=== PATIENT | male | born 1955 | race Caucasian/White ===

== ENCOUNTER 2020-09-04 16:04 | Outpatient (REF) | payer MEDICARE, BC, SELFPAY ==
[2020-09-04 15:39] LABS: HCT 42.6 % (40.0-50.0); HGB 13.6 g/dL (13.5-17.5)
[2020-09-04 16:09] LABS: ALT 32 U/L (16-63); AST 22 U/L (15-37); Albumin 4.1 g/dL (3.4-5.0); Alkaline Phosphatase 73 U/L (46-116); Anion Gap 7.4 mmol/L (3-11); BUN 11 mg/dL (7-18); Bilirubin, Total 0.5 mg/dL (0.2-1.0); CO2 29.6 mmol/L (21.0-32.0); CREATININE 0.8 mg/dL (0.70-1.30); Calcium 9.1 mg/dL (8.5-10.1); Calculated LDL 75 mg/dL (<100); Chloride 105 mmol/L (98-107); Cholesterol 165 mg/dL (<200); Glucose 93 mg/dL (74-106); HDL Cholesterol 68 mg/dL (40-60); Potassium 5.5 mmol/L (3.5-5.1); Sodium 142 mmol/L (136-145); Total Protein 7.1 g/dL (6.4-8.2); Triglyceride 110 mg/dL (<150)
[2020-09-04 22:35] LABS: PSA, Screening 3.1 ng/mL (0.0-4.5)
== END 2020-09-04 16:05 | disposition home or self-care (01) ==
LOC: NCHCN 16:04
PROVIDERS: Visit Provider Family Medicine
DX: Z00.00 Encounter for general adult medical examination without abnormal findings (principal); Z13.0 Encounter for screening for diseases of the blood and blood-forming organs and certain disorders involving the immune mechanism; Z13.220 Encounter for screening for lipoid disorders; Z12.5 Encounter for screening for malignant neoplasm of prostate
CPT/HCPCS: 80053; 80061; 84153; 85014; 85018

== ENCOUNTER 2020-11-03 01:13 | Outpatient (CLI) | payer MEDICARE, BC, SELFPAY ==
--- NOTE | 2020-11-03 13:27 | DI.RAD_ITS ---
Exam(s) XR WRIST RT COMPLETE EXAM: XR WRIST RT COMPLETE CLINICAL HISTORY: RT WRIST JOINT PAIN, M25.531. TECHNIQUE: 2D digital imaging was performed. COMPARISON: No exams were available for comparison FINDINGS: BONES: No acute fracture is present. No bony destructive lesion is seen. JOINTS: The carpal bones are normally aligned. SOFT TISSUE: Normal. IMPRESSION: Unremarkable radiographs of the right wrist. DATA REPOSITORY: RADIATION DOSE DELIVERED:
== END 2020-11-03 01:33 ==
PROVIDERS: Visit Provider Family Medicine
DX: M25.531 Pain in right wrist (principal)
CPT/HCPCS: 73110

== ENCOUNTER → 2021-08-13 11:32 | Outpatient (BNVA) | payer MEDICARE, SELFPAY | PROVIDERS: PCP Family Medicine; Referring Provider Family Medicine; Visit Provider Physical Therapy Assistant | DX: R19.5 Other fecal abnormalities (principal) | CPT/HCPCS: 99203 ==

== ENCOUNTER 2021-08-16 01:20 | Outpatient (CLI) | payer MEDICARE, SELFPAY ==
[2021-08-16 12:50] LABS: Source Nasal/Nares
[2021-08-16 15:05] LABS: COVID-19 PCR Negative (Negative)
== END 2021-08-16 01:21 | disposition home or self-care (01) ==
LOC: LBO 01:21
PROVIDERS: PCP Family Medicine; Visit Provider Surgery
DX: Z20.822 Contact with and (suspected) exposure to COVID-19 (principal); Z01.818 Encounter for other preprocedural examination
CPT/HCPCS: 87635

== ENCOUNTER 2021-08-17 08:33 | Day surgery (SDC) | payer MEDICARE, SELFPAY ==
--- NOTE | 2021-08-16 19:50 | W.COLOREPORT ---
Colonoscopy Report Date of procedure: 08/17/21 Pre-op diagnosis general: +cologuard/hx of polyp/+ fam HX CRC Surgeon: Silva Finley Anesthesia Type: General:No Airway Prep: Miralax/Dulcolax Procedure Description: After informed consent was obtained the patient was taken to the procedure room and placed in a left decubitous position. Monitors were applied and a time out was done. The patients name, date of , procedure, allergies to medications and metal in their body was reviewed. The patient was then sedated. Once sedated and comfortable a rectal exam was done. External exam was normal. Internal exam revealed a normal sphincter tone and no palpable masses. The scope was then introduced and retrofelexed. Nointernal hemorrhoids were identified. The scope was then advanced to the cecum withdifficulty. The TI and appendiceal orifice were identified. The prep was poor- BBPS-0 [place] bowel prep scale. There is a significant amount of semiformed stool in the colon, obscuring visualization. There is also a high quantity of vegetative matter that continuously clogs up the scope. Only about 50% of the lumen of the colon is visible. Was then slowly retracted over 20 minutes back into the rectum. No diverticuli were seen today. He does have multiple polyps that are removed. He has a polyp at 30 cm that is a 1 cm pedunculated adenomatous polyp. This is removed with a hot snare. All specimen is retrieved and no bleeding is noted. No clip is placed. He has 2 polyps at 20 cm that are each removed with hot biopsy forcep. These polyps are each 5 mm. One is flat and one is pedunculated. All specimen is retrieved he also has a 5 mm flat polyp in the rectum that is removed by hot biting forcep. The scope was removed and the patient was woken up and taken back to Same day surgery in stable condition. The patient tolerated the procedure well and there were no immediate complications. Follow up: The patient should follow up in 1 years, path pending, unless they develop changes in bowel habits or other new gastrointestinal complaints. I did discuss with him because of the poor prep he is going to need to have to repeat this in a years time as polyps could very easily have been missed. We will do a 48-hour clear liquids and then the MiraLAX prep with extra Dulcolax the night before starting the prep. And give careful instructions that he is should be on a low fiber diet 5 days before the prep begins. This document was created using voice activated software and may contain errors
--- NOTE | 2021-08-16 19:51 | PDOC.DSDIS_ITS ---
Discharge Plan Disposition Patient Disposition: HOME Condition: Good Discharge Details Reason For Visit: colon scope Attending Provider: Silva Finley Primary Care Provider: Olivia Osullivan V Home Meds and New Rx's Prescriptions: Continued melatonin 5 mg tablet,chewable 5 mg PO HS PRN0RF Tylenol Extra Strength 500 mg powder in packet 1,000 mg PO Q6H PRN0RF Discontinued polyethylene glycol 3350 17 gram/dose powder 238 g PO ONCE Qty: 238 0RF Rx Instructions: take per colonoscopy instructions bisacodyl [Dulcolax (bisacodyl)] 5 mg tablet,delayed release (DR/EC) 5 mg PO ONCE Qty: 4 0RF Rx Instructions: take per colonoscopy instructions Discharge Instructions Additional Instructions: DSU Colonoscopy Post- Op Instructions Instructions for Everyone who is given Anesthesia: For your safety, please do the following for the next twenty-four (24) hours: *Do Not operate a motor vehicle (car, truck, motorcycle, etc.) *Do Not drink alcoholic beverages or use any recreational drugs for the first 24 hours or while taking pain medications. The medications in your body may have a reaction that can be dangerous. *Do Not make any important decisions or sign any important papers. Findings:x3 polyps Follow up: Needs to repeat scope in 1yrs time b/c of polyps and poor prep. Need to day two day prep next scope. 1. No lifting over 20 pounds or strenuous activity for the first 24 hours after your procedure. After 24 hours there are no restrictions on your activity but you may feel fatigued for a few days. 2. After you arrive home you may have a light meal and return to your normal diet as you can tolerate it without feeling sick to your stomach. 3. You may have a bloated, gaseous feeling in your belly (abdomen) after a colonoscopy. Passing gas and belching will help. Walking or lying down on your left side with your knees flexed may relieve the discomfort. Call the office at [phone] (Office) or [phone] (Hospital) right away if you notice any of the following: a.Vomiting of blood or ?coffee ground stools?. b.Rectal bleeding 1Tbsp, blood clots or continuous bleeding. c.Severe belly (abdominal) pain. d.A hard distended belly (abdomen) and an inability to pass gas. 4. Please don?t expect to have a normal BM (bowel movement) for 2-3 days after your procedure. 5. If there are questions regarding the findings of your procedure, please contact your doctor 6. If you are unable to contact your doctor with a problem, contact the hospital at [phone]. 7. Continue all your regular medications unless directed otherwise. I understand the above instructions and have no questions. Signature of Patient or Adult Escort Name of Responsible Adult Escort Signature of Nurse Date/Time Activity:: see above Diet:: see above Discharge Orders Discharge Orders: Discharge Order (Routine); Ordered 08/16/21 Ordered By: Silva Finley
[2021-08-17 08:51] VITALS: BP 127/90; PULSE 68; RESP 16; TEMP 36.1; O2SAT 99
[2021-08-17] MEDS: Lactated Ringers 1,000 ML 80 ML IV (09:07)
--- NOTE | 2021-08-17 09:16 | W.ANESPRE ---
General Info Date of Service Date Performed: 08/17/21 Height: 6 ft 2 in Weight: 67.302 kg Body Mass Index (BMI): 19.0 Surgical Procedure: Operation Date: 08/17/21 09:05 Proposed Procedure Side Surgeon valentín Finley, Meds Allergies and Home Medications Allergies Allergy/AdvReac Type Severity Reaction Status Date / Time casein AdvReac Severe Verified 08/16/21 12:36 grass pollen AdvReac Mild Verified 08/16/21 12:36 Home Medication Medication Instructions Recorded acetaminophen 500 mg oral powder 1,000 mg PO Q6H PRN 08/05/21 packet (Tylenol Extra Strength) melatonin 5 mg chewable tablet 5 mg PO HS PRN 08/13/21 Current Visit Medications: Current Medications Generic Name Dose Route Start Last Admin Trade Name Freq PRN Reason Stop Dose Admin Hyoscyamine Sulfate 0.125 mg 08/16/21 19:48 Hyoscyamine 0.125 Mg Sl/Oral/Chew SL DIRECTED PRN Ringer's Solution 1,000 mls @ 80 mls/hr 08/17/21 06:00 08/17/21 09:07 IV 09/15/21 23:59 80 mls/hr INFUSION JO Administration IV Miscellaneous Supplies 1 each 08/17/21 06:00 Iv Access IV 09/15/21 23:59 DIRECTED JO Ondansetron HCl 4 mg 08/16/21 19:48 Ondansetron 4 Mg/2 Ml Vial IVP Q4H PRN PRN Nausea / Vomiting Sodium Chloride 0 ml 08/17/21 06:00 Normal Saline Flush 10 Ml Syr IV 09/15/21 23:59 PRN PRN Sodium Chloride 0 ml 08/17/21 06:00 Normal Saline 10 Ml Vial IJ 09/15/21 23:59 DIRECTED PRN Sterile Water 0 ml 08/17/21 06:00 Water,Injection,Sterile 10 Ml Vial IJ 09/15/21 23:59 DIRECTED PRN PFSH Active Problems Active Problems: Problem Status Onset Code Positive colorectal cancer screening using Cologuard test R19.5 Guaiac positive stools R19.5 Medical History Medical History Family history of colon cancer History of Lyme disease History of malaria Hx of adenomatous colonic polyps Metatarsalgia, right foot Shoulder pain, left Tobacco Smoking/Tobacco Use Status: Never Alcohol Alcohol Intake: never Substance Use Substance use: Never Substance use type: does not use Vital Signs and Lab Results Vital Signs Most Recent Vital Signs in EMR: Most Recent Vital Signs Temp Pulse Resp BP Pulse Ox 36.1 C L 68 16 127/90 99 08/17/21 08:51 08/17/21 08:51 08/17/21 08:51 08/17/21 08:51 08/17/21 08:51 Lab Results Blood Type / Crossmatch: No Data to Display Complete Blood Count: No Data to Display Complete Metabolic Panel: No Data to Display Liver Function Panel: No Data to Display Coagulation Panel: No Data to Display Cardiac Panel: No Data to Display Arterial Blood Gas: No Data to Display Venous Blood Gas: No Data to Display Pancreas Panel: No Data to Display Thyroid Panel: No Data to Display Infectious Disease: Coronavirus (COVID-19)(PCR) Negative (Negative) 08/16/21 09:55 08/16/21 Coronavirus 2019 Source Nasal/Nares 08/16/21 09:55 08/16/21 Blood Cultures: No Data to Display Toxicology Panel: No Data to Display Anesthesia Assessment and Plan Anesthesia History Personal History: No History of Anesthesia Complications Family History: No Family History of Anesthesia Complications Exercise Tolerance Exercise Tolerance: Metabolic Equivalents>4 Cardiac & Pulmonary Exam Cardiac Exam: Normal S1/S2 Heart Sounds Pulmonary Exam: Clear Bilateral Breath Sounds Implantable Cardiac Device Does patient have a Pacemaker or an ICD?: No Airway Exam Known Difficult Airway: No Mallampati Class: 2 Mouth Opening: Normal (> 3cm) Thyromental Distance: Greater than 3 cm Neck Range of Motion: Full ROM Neck Circumference: Normal Teeth Condition: Normal Dentition ASA Classification ASA Score: ASA 2 Emergency Case?: No NPO Status NPO Status: NPO Clears >2 hours, Solids >8 hours Anesthesia Plan Resuscitation Status: Full Code Anesthesia Technique: General Anesthesia Airway Planned: Natural Airway Monitors Used: Standard Monitors Preoperative Comments:: 65 yo male for colo. Sig PMHx: never smoker, denies major health issues.
[2021-08-17 09:20] VITALS: BMI 19.0
--- NOTE | 2021-08-17 09:41 | BOWEL_PTH ---
PATIENT: Greg Gregg LOC: [facility] U#:[id number] AGE/SX: 65/M ROOM: RE08/17/[address]: Silva Finley : 1955 BED: DIS: 08/17/2021 SPEC #: [id number] RECD: 08/17/21 12:37 STATUS: JACQUELIN REAntoine #: [id number] CHARITO: 08/17/21 09:[address]: Silva Finley DEPT: Surgical Specimen RECD BY: Caprice Piña ENTERED: 08/17/21 12:39 SP TYPE: Bowel OTHR DR: Olivia Osullivan V Tissues: 1 - BIOPSY BOWEL 2 - BIOPSY BOWEL 3 - BIOPSY BOWEL Procedures: GROSS AND MICRO LEVEL 4 Comments: [id number]
[2021-08-17 10:26] VITALS: BP 108/81; PULSE 65; RESP 16; TEMP 35.8; O2SAT 100
--- NOTE | 2021-08-17 10:28 | W.ANESPOSTOP ---
Postoperative Evaluation Date, Time and Location Date Performed: 08/17/21 Time Performed: 10:29 Patient Location: Day Surgery Unit Vital Signs Most Recent Imported Vital Signs: Most Recent Vital Signs Temp Pulse Resp BP Pulse Ox 35.8 C L 65 16 108/81 100 08/17/21 10:26 08/17/21 10:26 08/17/21 10:08/17/21 10:08/17/21 10:26 Pain Score Most Recent Pain Score: Most Recent Pain Score Pain Level 0 08/17/21 10:26 Assessment Mental Status: Arousable with meaningful communication Airway and Respiratory Function: Patent airway with normal (patient baseline) respiratory exam Cardiovascular Function: Hemodynamically Stable Hydration Status: Adequately Hydrated Nausea & Vomiting: No Nausea or Vomiting Pain: Pt. Denies Any Pain Peripheral Nerve Block: Patient did not receive a nerve block
[2021-08-17 11:05] VITALS: BP 133/88; PULSE 53; RESP 18; TEMP 36.3; O2SAT 100
== END 2021-08-17 11:20 | disposition home or self-care (01) ==
LOC: SUR 08:33
PROVIDERS: PCP Family Medicine; Visit Provider Surgery
PROC: 0DJD8ZZ Inspection of Lower Intestinal Tract, Via Natural or Artificial Opening Endoscopic (ICD-10-PCS; CPT 45378; principal; 2021-08-17 09:00)
DX: R19.5 Other fecal abnormalities (principal); K62.1 Rectal polyp; K63.5 Polyp of colon; Z80.0 Family history of malignant neoplasm of digestive organs; Z86.010 Personal history of colon polyps
CPT/HCPCS: 45384; 45385; 88305; J2001

== ENCOUNTER → 2022-08-05 09:08 | Outpatient (BNVA) | payer MEDICARE, SELFPAY | PROVIDERS: PCP Family Medicine; Referring Provider Family Medicine; Visit Provider Surgery | DX: R19.5 Other fecal abnormalities (principal); Z80.0 Family history of malignant neoplasm of digestive organs; Z86.010 Personal history of colon polyps | CPT/HCPCS: 99212; 99214 ==

== ENCOUNTER 2022-08-19 07:15 | Day surgery (SDC) | payer MEDICARE, SELFPAY ==
[2022-08-19 07:15] VITALS: BP 102/76; PULSE 60; RESP 18; TEMP 36.1; O2SAT 100
[2022-08-19] MEDS: Lactated Ringers 1,000 ML 80 ML IV (07:45)
--- NOTE | 2022-08-19 08:06 | W.ANESPRE ---
General Info Date of Service Date Performed: 08/19/22 Height: 6 ft 1 in Weight: 67.1 kg Body Mass Index (BMI): 19.5 Surgical Procedure: Operation Date: 08/19/22 08:35 Proposed Procedure Side Surgeon p Colonoscopy, possible polypectomy Leroy Forde MD Meds Allergies and Home Medications Allergies Allergy/AdvReac Type Severity Reaction Status Date / Time casein AdvReac Severe Verified 08/19/22 07:30 grass pollen AdvReac Mild Verified 08/19/22 07:30 Home Medication Medication Instructions Recorded acetaminophen 500 mg oral powder 1,000 mg PO Q6H PRN 08/05/21 packet (Tylenol Extra Strength) melatonin 5 mg chewable tablet 5 mg PO HS PRN 08/13/21 bisacodyl 5 mg tablet,delayed 5 mg PO ONCE colonscopy bowel prep 08/05/22 release (Dulcolax (bisacodyl)) #8 tabs polyethylene glycol 3350 17 238 g PO ONCE colonoscopy prep 08/05/22 gram/dose oral powder #238 grams saw palmetto 500 mg capsule 1,000 mg PO DAILY 08/05/22 Current Visit Medications: Current Medications Generic Name Dose Route Start Last Admin Trade Name Freq PRN Reason Stop Dose Admin Ringer's Solution 1,000 mls @ 80 mls/hr 08/19/22 06:00 08/19/22 07:45 IV 08/19/22 23:59 80 mls/hr INFUSION JO Administration IV Miscellaneous Supplies 1 each 08/19/22 06:00 Iv Access IV 08/19/22 23:59 DIRECTED JO Sodium Chloride 0 ml 08/19/22 06:00 Normal Saline Flush 10 Ml Syr IV 08/19/22 23:59 PRN PRN Sodium Chloride 0 ml 08/19/22 06:00 Normal Saline 10 Ml Vial IJ 08/19/22 23:59 DIRECTED PRN Sterile Water 0 ml 08/19/22 06:00 Water,Injection,Sterile 10 Ml Vial IJ 08/19/22 23:59 DIRECTED PRN PFSH Active Problems Active Problems: Problem Status Onset Code Guaiac positive stools R19.5 Positive colorectal cancer screening using Cologuard test R19.5 Medical History Medical History Family history of colon cancer History of Lyme disease History of malaria Hx of adenomatous colonic polyps Metatarsalgia, right foot Shoulder pain, left Surgical History Surgical History Hx of hernia repair Tobacco Smoking/Tobacco Use Status: Never Alcohol Alcohol Intake: never Substance Use Substance use: Never Substance use type: does not use Vital Signs and Lab Results Vital Signs Most Recent Vital Signs in EMR: Most Recent Vital Signs Temp Pulse Resp BP Pulse Ox 36.1 C L 60 18 102/76 100 08/19/22 07:15 08/19/22 07:15 08/19/22 07:15 08/19/22 07:15 08/19/22 07:15 Lab Results Blood Type / Crossmatch: No Data to Display Complete Blood Count: No Data to Display Complete Metabolic Panel: No Data to Display Liver Function Panel: No Data to Display Coagulation Panel: No Data to Display Cardiac Panel: No Data to Display Arterial Blood Gas: No Data to Display Venous Blood Gas: No Data to Display Pancreas Panel: No Data to Display Thyroid Panel: No Data to Display Infectious Disease: No Data to Display Blood Cultures: No Data to Display Toxicology Panel: No Data to Display Anesthesia Assessment and Plan Anesthesia History Personal History: No History of Anesthesia Complications Family History: No Family History of Anesthesia Complications Exercise Tolerance Exercise Tolerance: Metabolic Equivalents>4 Pertinent Negatives Pertinent Negatives: No Symptoms of GERD Cardiac & Pulmonary Exam Cardiac Exam: Normal S1/S2 Heart Sounds Pulmonary Exam: Clear Bilateral Breath Sounds Implantable Cardiac Device Does patient have a Pacemaker or an ICD?: No Airway Exam Known Difficult Airway: No Mallampati Class: 2 Mouth Opening: Normal (> 3cm) Thyromental Distance: Greater than 3 cm Neck Range of Motion: Full ROM Neck Circumference: Normal Teeth Condition: Normal Dentition ASA Classification ASA Score: ASA 2 Emergency Case?: No NPO Status NPO Status: NPO Clears >2 hours, Solids >8 hours Anesthesia Plan Resuscitation Status: Full Code Anesthesia Technique: General Anesthesia Airway Planned: Natural Airway Monitors Used: Standard Monitors
[2022-08-19 08:56] VITALS: BMI 19.5
--- NOTE | 2022-08-19 09:11 | W.COLOREPORT ---
Date of service: 08/19/22 Time of Service: 10:12 Colonoscopy Report Date of procedure: 08/19/22 Pre-op diagnosis general: Hx adenomatous polyps; family hx of colon ca--father; +Cologuard; guiaic+ Post-op diagnosis procedure note: same Procedure: 1. Colonoscopy 2. Polypectomy Surgeon: Leroy Forde Anesthesia Type: MAC Pathology: other (1. polyp @65cm) Complications: None Disposition: same day Indications: Hx adenomatous polyps; family hx of colon ca--father; +Cologuard; guiaic+ The patient had an incomplete colonoscopy last year due to poor prep. Prep: Miralax/Dulcolax Retraction Time: >15 min Findings: Polyp @ 65cm. Rectal vascular congestion. Procedure Description: After informed consent was obtained, the patient was taken to the procedure room and placed in a left decubitus position. Monitors were applied and a time out was done. The patient's name, date of , procedure, allergies to medications, and metal in their body were reviewed. The patient was then sedated. Once sedated and comfortable, a digital rectal exam was done. External exam was normal. Internal exam revealed _normal sphincter tone, and enlarged but smooth prostae, and no palpable masses or gross blood. The colonoscope was then introduced and advanced to the cecum under direct visualization with mild difficulty. The ileocecal valve and appendiceal orifice were visualized. The prep was good.? ?The scope was then slowly withdrawn over 15 minutes in a circumferential manner to the rectum. In doing so, one polyps was encountered at 65cm. This was taken by cold forceps. There? was no diverticulosis noted. The mucosa is pink and healthy.? In the rectum, the scope was retroflexed, andmildinternal hemorrhoids were noted.? The scope was straightened and withdrawn from the anus. The patient tolerated the procedure well, and there were no immediate complications.? The patient was taken to the Day Surgery Unit recovery?area in good condition. Follow up: 5 years, await pathology
--- NOTE | 2022-08-19 09:43 | BOWEL_PTH ---
PATIENT: Greg Gregg LOC: [facility] U#:[id number] AGE/SX: 66/M ROOM: RE08/19/[address]: Leroy Forde : 1955 BED: DIS: 08/19/2022 SPEC #: [id number] RECD: 08/19/22 12:52 STATUS: JACQUELIN RE #: [id number] CHARITO: 08/19/22 09:[address]: Leroy Forde DEPT: Surgical Specimen RECD BY: Caprice Piña ENTERED: 08/19/22 12:53 SP TYPE: Bowel OTHR DR: Olivia Osullivan V Tissues: 1 - BIOPSY BOWEL Procedures: GROSS AND MICRO LEVEL 4 Comments: [id number]
[2022-08-19 10:05] VITALS: BP 96/72; PULSE 69; RESP 14; TEMP 35.9; O2SAT 100
--- NOTE | 2022-08-19 10:17 | W.PM.DSUDISC ---
Date of service: 08/19/22 Time of Service: 10:17 Discharge Plan Disposition Patient Disposition: Home Condition: Good Discharge Details Reason For Visit: Diagnostic colonoscopy Attending Provider: Leroy Forde Primary Care Provider: Olivia Osullivan V Home Meds and New Rx's Prescriptions: No Action melatonin 5 mg tablet,chewable 5 mg PO HS PRN polyethylene glycol 3350 17 gram/dose powder 238 g PO ONCE Qty: 238 0RF Rx Instructions: take per colonoscopy instructions bisacodyl [Dulcolax (bisacodyl)] 5 mg tablet,delayed release (DR/EC) 5 mg PO ONCE Qty: 8 0RF Rx Instructions: take per colonoscopy instructions saw palmetto 500 mg capsule 1,000 mg PO DAILY Rx Instructions: give with food (meal/snack) Tylenol Extra Strength 500 mg powder in packet 1,000 mg PO Q6H PRN Discharge Instructions Instructions: Colonoscopy (DC), Colorectal Polyps (DC) Activity:: Activity as Tolerated Diet:: As Tolerated DS: Diagnosis Discharge Diagnosis (1) Hx of adenomatous colonic polyps: Asessment and Plan: await pathology Repeat colonoscopy in 5 years
--- NOTE | 2022-08-19 10:17 | W.ANESPOSTOP ---
Postoperative Evaluation Date, Time and Location Date Performed: 08/19/22 Time Performed: 10:18 Patient Location: Day Surgery Unit Vital Signs Most Recent Imported Vital Signs: Most Recent Vital Signs Temp Pulse Resp BP Pulse Ox 35.9 C L 69 14 96/72 L 100 08/19/22 10:05 08/19/22 10:05 08/19/22 10:05 08/19/22 10:05 08/19/22 10:05 Pain Score Most Recent Pain Score: Most Recent Pain Score Pain Level 0 08/19/22 10:05 Assessment Mental Status: Awake (Alert & Oriented to Patient Baseline) Airway and Respiratory Function: Patent airway with normal (patient baseline) respiratory exam Cardiovascular Function: Hemodynamically Stable Hydration Status: Adequately Hydrated Nausea & Vomiting: No Nausea or Vomiting Pain: Pt. Denies Any Pain Peripheral Nerve Block: Patient did not receive a nerve block
[2022-08-19 10:35] VITALS: BP 120/99; PULSE 69; RESP 18; TEMP 36; O2SAT 99
== END 2022-08-19 10:51 | disposition home or self-care (01) ==
PROVIDERS: PCP Family Medicine; Visit Provider Surgery
PROC: 0DJD8ZZ Inspection of Lower Intestinal Tract, Via Natural or Artificial Opening Endoscopic (ICD-10-PCS; CPT 45378; principal; 2022-08-19 08:30)
DX: R19.5 Other fecal abnormalities (principal); Z86.010 Personal history of colon polyps; Z80.0 Family history of malignant neoplasm of digestive organs; K63.5 Polyp of colon; K64.8 Other hemorrhoids
CPT/HCPCS: 45380; 88305; J2704

== ENCOUNTER 2022-12-11 13:35 | Emergency (ER) | payer MEDICARE, SELFPAY ==
--- NOTE | 2022-12-11 13:37 | W.ED.GENAD ---
Discharge Plan Disposition Patient Disposition: Home Discharge Details Clinical Impression: Tick bite of buttock Primary Care Provider: Olivia Osullivan V ED Provider: Marcelo Kelly Home Meds and New Rx's Prescriptions: Continued melatonin 5 mg tablet,chewable 5 mg PO HS PRN polyethylene glycol 3350 17 gram/dose powder 238 g PO ONCE Qty: 238 0RF Rx Instructions: take per colonoscopy instructions bisacodyl [Dulcolax (bisacodyl)] 5 mg tablet,delayed release (DR/EC) 5 mg PO ONCE Qty: 8 0RF Rx Instructions: take per colonoscopy instructions saw palmetto 500 mg capsule 1,000 mg PO DAILY Rx Instructions: give with food (meal/snack) Tylenol Extra Strength 500 mg powder in packet 1,000 mg PO Q6H PRN Discharge Instructions Instructions: Tick Bite (ED) Additional Instructions: You were seen in the emergency department for your tick bite. You received a prophylactic dose of doxycycline to prevent Lyme disease. As we discussed, please cover up and wear sunscreen while outside as doxycycline can make you more sensitive to the sun. Please soak your tick bite twice a day and warm compresses or take a bath. Please return to the emergency department if you develop worsening pain swelling or any fevers. Please also return to the ED if you develop any bull's-eye rash around your tick bite. Otherwise please follow-up with your primary care provider as needed. Discharge Data Discharge Date/Time-TO BE ENTERED AT DEPARTURE: 12/11/22 14:09 Medical Decision Making This is a quite well-appearing normothermic and not tachycardic 67-year-old male with tick bite meeting criteria for prophylaxis against Lyme disease with single dose 200 mg doxycycline tablet. Patient does still have the mouthparts of the tick in place. I advised that there is no indication for attempting removal of the mouthparts as this would only serve to increase the patient's chances of developing cellulitis. There is no pain out of proportion to suggest necrotizing soft tissue infection. Similarly no crepitance. I did advise the patient to return if he developed significant pain or swelling around his tick bite which could indicate cellulitis. I also advised ED return if he developed any bull's-eye rash which could be consistent with erythema migrans. He had no systemic symptoms of nausea vomiting fevers chills nor shortness of breath to suggest Lyme disease. No joint pain to suggest Lyme arthritis. No chest pain or palpitations to suggest Lyme carditis. We will proceed with empiric trial of expectant outpatient management. HPI General Date/Time Provider Initiated Documentation: 12/11/22 13:37. HPI Narrative: This is a 67-year-old male with a remote history of Lyme disease who was found a tick embedded in his left buttocks. His attempted to remove it 2 hours ago but some of the mouthparts remained. Patient reports that the tick might have been embedded for 1 to 2 days and they were concerned about the engorgement of the tick. 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 Patient and his felt that the tick may have been a deer tick. Patient has had no nausea vomiting fevers chills chest pain or shortness of breath. Related Data Home Medications Medication Instructions Recorded Confirmed acetaminophen 500 mg oral powder 1,000 mg PO Q6H PRN 08/05/21 12/11/22 packet (Tylenol Extra Strength) melatonin 5 mg chewable tablet 5 mg PO HS PRN 08/13/21 12/11/22 bisacodyl 5 mg tablet,delayed 5 mg PO ONCE colonscopy bowel prep 08/05/22 12/11/22 release (Dulcolax (bisacodyl)) #8 tabs polyethylene glycol 3350 17 238 g PO ONCE colonoscopy prep 08/05/22 12/11/22 gram/dose oral powder #238 grams saw palmetto 500 mg capsule 1,000 mg PO DAILY 08/05/22 12/11/22 Previous Rx's Medication Instructions Recorded bisacodyl 5 mg tablet,delayed 5 mg PO ONCE colonscopy bowel prep 08/05/22 release (Dulcolax (bisacodyl)) #8 tabs polyethylene glycol 3350 17 238 g PO ONCE colonoscopy prep 08/05/22 gram/dose oral powder #238 grams Allergies Allergy/AdvReac Type Severity Reaction Status Date / Time casein AdvReac Severe Verified 12/11/22 13:46 grass pollen AdvReac Mild Verified 12/11/22 13:46 PFSH All Active Problems (Updated 12/11/22 @ 13:48 by Marcelo Kelly MD) Tick bite of buttock (Acute) Guaiac positive stools (Acute) Positive colorectal cancer screening using Cologuard test (Acute) Medical History (Updated 12/11/22 @ 13:48 by Marcelo Kelly MD) Family history of colon cancer History of Lyme disease History of malaria Hx of adenomatous colonic polyps Metatarsalgia, right foot Shoulder pain, left Surgical History Hx of hernia repair Social History Smoking/Tobacco Use Status: Never Smoking risk assessment performed?: Yes Alcohol Intake: never Drug use: Never Substance use type: does not use Current gender identity: male Do you feel safe at home: Yes Do you feel safe in your relationship?: Yes Exam Narrative Exam Narrative: General: Well-appearing in no acute distress speaking in complete sentences. Head: Normocephalic, atraumatic. Eye: Extraocular eye movements intact. No conjunctival injection. No scleral icterus. Ear, nose, mouth, throat: Grossly normal inspection. Normal voice, handling secretions normally. Neck: Trachea midline. Cardiovascular: Well-perfused distal extremities. Respiratory: Nonlabored respiration. Gastrointestinal: Nondistended abdomen. Buttocks: On the lateral aspect of the left gluteus there are mouthparts from a tick. There is very mild surrounding erythema less than 1 cm in diameter. No crepitance. No pain out of proportion. Musculoskeletal: No edema. Moving all 4 extremities spontaneously. Skin: Normal for age and race, grossly normal temperature and turgor. No acute rash. Neurologic: Alert and appropriate, no apparent acute deficits. Psychiatric: Mood and manner are appropriate. Grooming and personal hygiene are appropriate.
[2022-12-11 13:40] VITALS: BP 100/86; PULSE 81; RESP 18; TEMP 36.7; O2SAT 100
[2022-12-11] MEDS: Doxycycline Hyclate 100 MG CAP 200 MG PO (13:52)
== END 2022-12-11 14:09 | disposition home or self-care (01) ==
LOC: ER 13:59
PROVIDERS: Emergency Provider Emergency Medicine; PCP Family Medicine
DX: S30.860A Insect bite (nonvenomous) of lower back and pelvis, initial encounter (principal); W57.XXXA Bitten or stung by nonvenomous insect and other nonvenomous arthropods, initial encounter

== ENCOUNTER → 2023-06-13 00:55 | Outpatient (CLI) | payer MEDICARE, SELFPAY ==
--- NOTE | 2023-06-13 | DI.MRI_ITS ---
Exam(s) MR CERVICAL SPINE WO EXAM: MR CERVICAL SPINE WO CLINICAL HISTORY: SCOLIOSIS M41.9 NECK PAIN M54.2 LT ARM RADICULOPATHY TECHNIQUE: Multiplanar multisequence MRI of the cervical spine was performed without intravenous con trast. COMPARISON: No exams were available for comparison FINDINGS: BONES: Vertebral body heights are maintained. Intervertebral disc spaces are normal. Alignment is nor mal. Bone marrow signal intensity is within normal limits. CERVICAL CORD: Craniovertebral junction is unremarkable. The cervical cord is normal size and signal intensity. SOFT TISSUES: Unremarkable. C2-3: No disc herniation or bulge is identified. No significant central spinal canal or neural forami nal stenosis. C3-4: No disc herniation or bulge is identified. No significant central spinal canal or neural forami nal stenosis C4-5: No disc herniation or bulge is identified. No significant central spinal canal or neural forami nal stenosis C5-6: No disc herniation or bulge is identified. There is prominence of the left uncovertebral joint. It causes [id number] left neural foraminal stenosis. No significant central spinal canal caden nosis or right neural foraminal stenosis is seen. No significant central spinal canal or neural fora jaswinder stenosis C6-7: No disc herniation or bulge is identified. No significant central spinal canal or neural forami nal stenosis C7-T1: No disc herniation or bulge is identified. No significant central spinal canal or neural sue inal stenosis IMPRESSION: Prominence of the left uncovertebral joint at C5-C6 causing [id number] left neural foraminal st enosis. DATA REPOSITORY:
--- NOTE | 2023-06-13 | DI.MRI_ITS ---
Exam(s) MR THORACIC SPINE WO EXAM: MR THORACIC SPINE WO CLINICAL HISTORY: SCOLIOSIS M41.9 NECK PAIN M54.2 LT ARM RADICULOPATHY. TECHNIQUE: Multiplanar multisequence MRI of the Thoracic spine was performed. COMPARISON: No exams were available for comparison FINDINGS: Bones: The vertebral body heights are well maintained. Alignment is satisfactory. The signal characte ristics are unremarkable. Cord: The thoracic cord is normal size and signal intensity. No intrinsic cord lesion is present. Discs: No disc herniation or bulge is present. No central spinal canal or neural foraminal stenosis i s present in the thoracic spine. Soft tissues: Normal. IMPRESSION: No focal disc herniation, central spinal canal or neural foraminal stenosis is seen in the thoracic s pine. DATA REPOSITORY:
== END ==
PROVIDERS: PCP Family Medicine; Visit Provider Nurse Practitioner Family
DX: M99.71 Connective tissue and disc stenosis of intervertebral foramina of cervical region (principal)
CPT/HCPCS: 72141; 72146

== ENCOUNTER 2023-09-19 12:36 | Outpatient (REF) | payer MEDICARE, SELFPAY ==
[2023-09-19 15:54] LABS: Anion Gap 8.1 mmol/L (3-11); BUN 14 mg/dL (7-18); CO2 28.9 mmol/L (21.0-32.0); CREATININE 0.7 mg/dL (0.70-1.30); Calcium 9.2 mg/dL (8.5-10.1); Chloride 106 mmol/L (98-107); Estimated GFR 100.37 (mL/min/1.73m2); Glucose 84 mg/dL (74-106); Potassium 4.7 mmol/L (3.5-5.1); Sodium 143 mmol/L (136-145)
[2023-09-20 09:15] LABS: PSA, Screening 6.1 ng/mL (<=4.5)
== END 2023-09-19 12:37 | disposition home or self-care (01) ==
LOC: NCHCN 12:36
PROVIDERS: PCP Family Medicine; Visit Provider Family Medicine
DX: M70.61 Trochanteric bursitis, right hip (principal); R97.20 Elevated prostate specific antigen [PSA]; Z12.5 Encounter for screening for malignant neoplasm of prostate
CPT/HCPCS: 80048; 84153

== ENCOUNTER 2024-03-05 15:31 | Outpatient (REF) | payer MEDICARE, SELFPAY ==
[2024-03-05 23:00] LABS: PSA, Screening 5.3 ng/mL (<=4.5)
== END 2024-03-05 15:32 | disposition home or self-care (01) ==
LOC: NCHCN 15:31
PROVIDERS: PCP Family Medicine; Visit Provider Family Medicine
DX: Z12.5 Encounter for screening for malignant neoplasm of prostate (principal)
CPT/HCPCS: 84153

== ENCOUNTER 2024-09-19 15:21 | Outpatient (REF) | payer MEDICARE, SELFPAY ==
[2024-09-19 15:48] LABS: Anion Gap 4.8 mmol/L (3-11); BUN 20 mg/dL (7-18); CO2 30.2 mmol/L (21.0-32.0); CREATININE 0.8 mg/dL (0.70-1.30); Calcium 9.1 mg/dL (8.5-10.1); Chloride 109 mmol/L (98-107); Glucose 78 mg/dL (74-106); Potassium 4.9 mmol/L (3.5-5.1); Sodium 144 mmol/L (136-145)
[2024-09-19 23:19] LABS: PSA, Screening 6.1 ng/mL (<=4.5)
== END 2024-09-19 15:22 | disposition home or self-care (01) ==
LOC: NCHCN 15:21
PROVIDERS: PCP Family Medicine; Visit Provider Family Medicine
DX: Z00.00 Encounter for general adult medical examination without abnormal findings (principal); M25.512 Pain in left shoulder
CPT/HCPCS: 80048; 84153

== ENCOUNTER 2024-11-08 13:27 | Outpatient (CLI) | payer MEDICARE, SELFPAY ==
--- NOTE | 2024-11-08 | DI.US_ITS ---
Exam(s) US LOWER EXTREMITY VENOUS RT EXAM: US LOWER EXTREMITY VENOUS RT CLINICAL HISTORY: Rt leg swelling, M79.89; pain, ? DVT TECHNIQUE: Grayscale, color, and doppler imaging of the deep venous system of the right lower extrem ity was performed. COMPARISON: No exams were available for comparison FINDINGS: There is no evidence of intraluminal thrombus and there is normal compression and augmentation demons trated within the common femoral vein, femoral vein, and popliteal vein. In the ipsilateral calf the interrogated veins also exhibit normal compression/ augmentation properti es. The ipsilateral saphenofemoral junction is patent. Incidentally noted is a Pringle's cyst in the popliteal fossa and there is also a significant size ipsi lateral knee joint effusion. IMPRESSION: 1. No evidence of DVT in the right lower extremity. 2. Pringle cyst and ipsilateral knee joint effusion noted. DATA REPOSITORY:
== END 2024-11-08 13:47 ==
LOC: DI 13:28
PROVIDERS: PCP Family Medicine; Visit Provider Family Medicine
DX: M79.89 Other specified soft tissue disorders (principal)
CPT/HCPCS: 93971

== ENCOUNTER 2024-11-08 15:17 | Outpatient (REF) | payer MEDICARE, SELFPAY ==
[2024-11-08 16:27] LABS: HCT 42.8 % (40.0-50.0); HGB 13.6 g/dL (13.5-17.5); MCH 31.1 pg (27.0-33.0); MCHC 31.8 % (32.0-36.0); MCV 98 fL (80-95); MPV 11.3 fL (8.0-11.0); Platelet Count 212 10^3/uL (130-400); RBC 4.37 10^6/uL (4.36-5.78); RDW 12.3 % (11.8-14.1); RDW-SD 44.5 fL; WBC 6.07 10^3/uL (4.4-10.8)
[2024-11-08 16:31] LABS: ESR 21 mm/hr (0-20)
[2024-11-08 16:49] LABS: C-Reactive Protein 3.62 mg/dL (<or=0.5)
[2024-11-11 11:09] LABS: Lyme Ab w Rflx to Lyme Confirm Positive (Negative)
[2024-11-11 12:26] LABS: Lyme IgG Ab Positive (Negative); Lyme IgM Ab Negative (Negative)
[2024-11-12 21:55] LABS: Anaplasma phagocytophilum Negative (Negative); B. miyamotoi PCR Negative (Negative); Babesia divergens/MO-1 Negative (Negative); Babesia duncani Negative (Negative); Babesia microti Negative (Negative); Ehrlichia chaffeensis Negative (Negative); Ehrlichia ewingii/canis Negative (Negative); Ehrlichia muris eauclairensis Negative (Negative)
== END 2024-11-08 15:18 | disposition home or self-care (01) ==
LOC: NCHCN 15:17
PROVIDERS: PCP Family Medicine; Visit Provider Family Medicine
DX: M25.461 Effusion, right knee (principal)
CPT/HCPCS: 85027; 85652; 86617; 87798; 86140; 86618

== ENCOUNTER → 2025-04-18 08:20 | Outpatient (BNVA) | payer MEDICARE, SELFPAY | PROVIDERS: PCP Family Medicine; Referring Provider Family Medicine; Visit Provider Physician Assistant | DX: S63.592A Other specified sprain of left wrist, initial encounter (principal); X50.0XXA Overexertion from strenuous movement or load, initial encounter; Y93.89 Activity, other specified | CPT/HCPCS: 99212 ==

== ENCOUNTER 2025-04-29 14:52 | Outpatient (REF) | payer MEDICARE, SELFPAY ==
[2025-04-30 17:59] LABS: PSA, Diagnostic 6.9 ng/mL (<=4.5)
== END 2025-04-29 14:53 | disposition home or self-care (01) ==
LOC: NCHCN 14:52
PROVIDERS: PCP Family Medicine; Visit Provider Family Medicine
DX: R97.20 Elevated prostate specific antigen [PSA] (principal)
CPT/HCPCS: 84153

== ENCOUNTER 2025-05-04 15:47 | Emergency (ER) | payer MEDICARE, SELFPAY ==
[2025-05-04 15:48] VITALS: BP 125/78; PULSE 62; RESP 10; TEMP 36.3; O2SAT 98
[2025-05-04] MEDS: Lidocaine 1% Pres-Free W/EPI 1/200,000 30 ML VIAL IJ (16:02)
--- NOTE | 2025-05-04 16:21 | W.ED.GENAD ---
Discharge Plan Disposition Patient Disposition: Home Discharge Details Clinical Impression: Tick bite Primary Care Provider: Olivia Osullivan V ED Provider: Chris Lafleur Home Meds and New Rx's Prescriptions: New doxycycline hyclate 100 mg tablet 100 mg PO BID Qty: 60 0RF Continued melatonin 5 mg tablet,chewable 5 mg PO HS PRN polyethylene glycol 3350 17 gram/dose powder 238 g PO ONCE Qty: 238 0RF Rx Instructions: take per colonoscopy instructions bisacodyl [Dulcolax (bisacodyl)] 5 mg tablet,delayed release (DR/EC) 5 mg PO ONCE Qty: 8 0RF Rx Instructions: take per colonoscopy instructions saw palmetto 500 mg capsule 1,000 mg PO DAILY Rx Instructions: give with food (meal/snack) Tylenol Extra Strength 500 mg powder in packet 1,000 mg PO Q6H PRN cannabidiol 100 mg/mL solution 150 mg PO BID diclofenac sodium [Voltaren Arthritis Pain] 1 % gel 2 g topical QID Rx Instructions: apply to single elbow, wrist or hand; for hand includes palm/fingers/back of hand saw palmetto 160 mg capsule 320 mg PO DAILY celecoxib [Celebrex] 100 mg capsule 100 mg PO BID diclofenac sodium 1 % gel 4 g topical QID Rx Instructions: apply to single knee, ankle, foot; for foot includes sole/toes/top of foot Discontinued doxycycline hyclate 100 mg tablet 100 mg PO BID Discharge Instructions Instructions: Insect Bites and Stings ED Additional Instructions: Please follow-up with your primary care provider regarding your visit to the emergency department today. As discussed, you have been dosed with the prophylactic dose of doxycycline for Lyme disease, however given your chronic Lyme and other tickborne illnesses in the past, you are also being prescribed a month-long prescription for doxycycline should you have persistent symptoms. Should your symptoms worsen, or if you develop new concerning symptoms, please return immediately emergency department for further evaluation. HPI General Date/Time Provider Initiated Documentation: 05/04/25 15:50. HPI Narrative: MDM/Narrative: Assessment and plan 69-year-old male past medical history of tickborne illness, presents for embedded tick in left medial thigh. Vital signs otherwise within normal limits. Location was anesthetized, remainder of tick was removed. Patient treated prophylactically doxycycline 2 mg p.o. while in the emergency department. Given his multiple bouts of long-term tickborne illness in the past, will also provide a month-long prescription for doxycycline should he have a flareup. 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 Patient notes a funny sensation in the thigh yesterday, and then today visualized the tick in the left leg. He states that he was able to pull the body off of himself however he fears the mouth is still attached. He denies any associated fevers, chills or any other new or concerning symptoms. ROS: Negative besides as mentioned above Exam: Gen: A&O NAD HEENT: NCAT, EOMI, not icteric. External ears normal. No rhinorrhea. Moist mucous membranes. Neck: Supple, full range of motion, no observable masses, No meningeal sign. Lungs: No Respiratory distress. CV: RRR, no edema. Abdomen: Soft, nondistended, No rebound tenderness. MSK: No joint swelling, no redness. Skin: No rashes, petechiae, lesions. Normal color per patient. Embedded tick portion in the left medial thigh with surrounding erythema no significant tenderness or fluctuance Neuro: Normal Gait, Grossly intact. Psych: Appropriate for situation. Rhythm: NSR Rate: [] [place]: Normal axis Intervals: Normal intervals Other findings: No acute ST segment or T wave changes to suggest acute ischemia. Related Data Home Medications Medication Instructions Recorded Confirmed acetaminophen 500 mg oral powder 1,000 mg PO Q6H PRN 08/05/21 05/04/25 packet (Tylenol Extra Strength) melatonin 5 mg chewable tablet 5 mg PO HS PRN 08/13/21 05/04/25 bisacodyl 5 mg tablet,delayed 5 mg PO ONCE colonscopy bowel prep 08/05/22 05/04/25 release (Dulcolax (bisacodyl)) #8 tabs polyethylene glycol 3350 17 238 g PO ONCE colonoscopy prep 08/05/22 05/04/25 gram/dose oral powder #238 grams saw palmetto 500 mg capsule 1,000 mg PO DAILY 08/05/22 05/04/25 cannabidiol 100 mg/mL oral solution 150 mg PO BID 09/30/24 05/04/25 diclofenac sodium 1 % topical gel 2 g topical QID 03/07/25 05/04/25 (Voltaren Arthritis Pain) celecoxib 100 mg capsule (Celebrex) 100 mg PO BID 03/12/25 05/04/25 diclofenac sodium 1 % topical gel 4 g topical QID 03/12/25 05/04/25 saw palmetto 160 mg capsule 320 mg PO DAILY 03/12/25 05/04/25 doxycycline hyclate 100 mg tablet 100 mg PO BID #60 tabs 05/04/25 Previous Rx's Medication Instructions Recorded bisacodyl 5 mg tablet,delayed 5 mg PO ONCE colonscopy bowel prep 08/05/22 release (Dulcolax (bisacodyl)) #8 tabs polyethylene glycol 3350 17 238 g PO ONCE colonoscopy prep 08/05/22 gram/dose oral powder #238 grams doxycycline hyclate 100 mg tablet 100 mg PO BID #60 tabs 05/04/25 Allergies Allergy/AdvReac Type Severity Reaction Status Date / Time Alpha-Gal Allergy Severe Other (See Verified 05/04/25 15:51 (Uqehclvei-Usgyk-6,3-Gala Comment) casein AdvReac Severe Other (See Verified 05/04/25 15:51 Comment) grass pollen AdvReac Mild Other (See Verified 05/04/25 15:51 Comment) General Stated Complaint: InsectBite JACKIE: 4 Course Vital Signs Vital signs: Vital Signs Temperature 36.3 C L 05/04/25 15:48 Pulse 62 05/04/25 15:48 Respiratory Rate 10 L 05/04/25 15:48 Blood Pressure 125/78 05/04/25 15:48 Pulse Oximetry 98 05/04/25 15:48 Temperature 36.3 C L 05/04/25 15:48 Temperature Source Temporal Artery Scan 05/04/25 15:48 Pulse 62 05/04/25 15:48 Respiratory Rate 10 L 05/04/25 15:48 Blood Pressure 125/78 05/04/25 15:48 Blood Pressure Position Sitting 05/04/25 15:48 Pulse Oximetry 98 05/04/25 15:48 Oxygen Delivery Method Room Air 05/04/25 15:48 Oxygen Flow Rate 0 05/04/25 15:48 Procedure Foreign Body Removal Date of Procedure: 05/04/25. Time of procedure: 16:20 Provider that performed the procedure: Chris Lafleur Location of procedure: Lower extremity/left side (Medial left thigh) Indication: Pain and Redness. Confirmed by: direct visualization. Sterility: Sterile. Local anesthetic: Lidocaine 1%. Amount of local anesthetic used(mL): 3. Technique: Incision, Irrigation and Removal with forceps. Irrigation: Yes. Outcome: Sucessful. PFSH All Active Problems (Updated 05/04/25 @ 16:23 by Chris Lafleur MD) Tick bite (Acute) DRUJ (distal radioulnar joint) sprain (Acute) LEFT Guaiac positive stools (Acute) Positive colorectal cancer screening using Cologuard test (Acute) Medical History (Updated 05/04/25 @ 16:23 by Chris Lafleur MD) Allergic rhinitis Abnormal findings in stool Trochanteric bursitis of both hips Lyme arthritis Neck pain Encounter for specialized medical examination Senile hyperkeratosis Scoliosis deformity of spine Pain in toe Dizziness and giddiness Healthy adult on routine physical examination Pain in thoracic spine Impacted cerumen Malaria History of infectious disease Pain, joint, shoulder, left Eustachian tube disorder Greater trochanteric bursitis of both hips Skin lesion Hx of adenomatous colonic polyps History of Lyme disease Metatarsalgia, right foot Shoulder pain, left History of malaria Family history of colon cancer Surgical History Hx of hernia repair Family History (Updated 09/30/24 @ 13:55 by Enedina Dias) Mother Breast cancer Father Colon cancer Prostate cancer Sister No problems noted. Sister Scoliosis Brother No problems noted. Brother No problems noted. Brother Elevated PSA Scoliosis Raynauds disease Social History Smoking/Tobacco Use Status: Never Smoking risk assessment performed?: Yes Alcohol Intake: never Drug use: Never Substance use type: does not use Current gender identity: male Do you feel safe at home: Yes Do you feel safe in your relationship?: Yes
[2025-05-04] MEDS: Doxycycline Hyclate 100 MG CAP 200 MG PO (16:29)
[2025-05-04 16:34] VITALS: BP 125/78; PULSE 65; RESP 14; O2SAT 98
== END 2025-05-04 16:35 | disposition home or self-care (01) ==
PROVIDERS: Emergency Provider General Practice; PCP Family Medicine
DX: S70.362A Insect bite (nonvenomous), left thigh, initial encounter (principal); W57.XXXA Bitten or stung by nonvenomous insect and other nonvenomous arthropods, initial encounter
CPT/HCPCS: 10120; J2004